=== PATIENT | male | born 1960 | race Caucasian/White ===

== ENCOUNTER 2018-03-23 07:07 | Day surgery (SDC) | END 2018-03-23 16:26 | disposition home or self-care (01) ==

== ENCOUNTER 2018-12-05 11:36 | Day surgery (SDC) | payer OTHER ==
[~2018-12-05] VITALS: Ht 152.4 cm; Wt 91.4 kg
[~2018-12-05 11:36] MED LIST: ASPI-903 PO; ATOR40TA68 PO; DOCU-144 PO; DOXAZOSIN PO; FINA5TAB4 PO; FLUTICASONE PO; LORA10CA PO; NIFE90TA21 PO; OMEP20CA16 PO; RANITIDINE PO; VALSARTAN PO; cardura PO; zantac PO
[2018-12-05 12:40] VITALS: Ht 152.4 cm; Wt 91.4 kg
[2018-12-05] MEDS ORDERED: PROPOFOL 40 ML ONE (12:51)
[2018-12-05] MEDS ORDERED: FENTAnyl 50 MCG/ML VIAL ONE (12:51)
[2018-12-05] MEDS ORDERED: LIDOCAINE 100 MG SYRINGE ONE (12:51)
[2018-12-05 12:52] VITALS: BP 155/77; PULSE 62; RESP 16
[2018-12-05 14:00] VITALS: BP 131/83; RESP 15
== END 2018-12-05 14:39 | disposition home or self-care (01) ==
LOC: GIL 11:36
PROVIDERS: ATTEND Internal Medicine Gastroenterology
DX: D12.2 Benign neoplasm of ascending colon (principal); K57.30 Diverticulosis of large intestine without perforation or abscess without bleeding; K64.9 Unspecified hemorrhoids; K31.9 Disease of stomach and duodenum, unspecified; K29.50 Unspecified chronic gastritis without bleeding; D12.3 Benign neoplasm of transverse colon
CPT/HCPCS: 88305; 88312; J2001; J3010